=== PATIENT | female | born 1950 | race Caucasian/White ===

== ENCOUNTER 2018-07-07 00:18 | Emergency (ER) | payer MEDICARE, MEDICAID ==
[~2018-07-07] VITALS: Ht 147.3 cm; Wt 52.3 kg
[~2018-07-07 00:18] MED LIST: ACET-458 PO; CLON0.5T11 PO; FLUO20CA8 PO; MEDR2.5T PO; OMEP-110 PO; OXYC-302 PO; OXYC-306 PO; [UNRECOGNIZED DRUG - CODE] PO
[2018-07-07] MEDS ORDERED: HYDROcodone/APAP 5/325 TABLET PO STA (00:42)
[2018-07-07] MEDS ORDERED: BUPIVACAINE 0.25% INFIL ONE (01:00)
[2018-07-07] MEDS ORDERED: LIDOCAINE 2%, 20ML SQ ONE (01:00)
[2018-07-07 01:09] LABS: BASOPHILS # (AUTO) 0.04 x10^3/uL (0-0.1); BASOPHILS % (AUTO) 1 % (0-1); EOSINOPHILS # (AUTO) 0.09 x10^3/uL (0-0.4); EOSINOPHILS % (AUTO) 1 % (1-7); LYMPHOCYTES # (AUTO) 1.55 x10^3/uL (1-3.4); LYMPHOCYTES % (AUTO) 16 % (22-44); MD NO; MEAN CORPUSCULAR HEMOGLOBIN 29.4 pg (27.0-34.8); MEAN CORPUSCULAR HGB CONC 33.2 g/dL (32.4-35.8); MEAN CORPUSCULAR VOLUME 88.6 fL (80-100); MEAN PLATELET VOLUME 8.2 fL (7.4-10.4); MONOCYTES # (AUTO) 0.54 x10^3/uL (0.2-0.8); MONOCYTES % (AUTO) 6 % (2-9); NEUTROPHILS # (AUTO) 7.21 x10^3/uL (1.8-6.8); NEUTROPHILS % (AUTO) 76 % (42-75); PLATELET COUNT 277 x10^3/uL (130-400); RED BLOOD COUNT 4.88 x10^6/uL (3.82-5.3); RED CELL DISTRIBUTION WIDTH 14.2 % (9.6-15.2)
[2018-07-07 01:15] LABS: ALANINE AMINOTRANSFERASE 40 U/L (12-78); ALBUMIN 3.7 g/dL (3.4-5.0); ANION GAP 9 mmol/L (5-15); CALCIUM 9.1 mg/dL (8.5-10.1); CHLORIDE 106 mmol/L (98-107); CREATININE 0.99 mg/dL (0.55-1.02)
[2018-07-07 01:17] LABS: ALKALINE PHOSPHATASE 109 U/L (45-117); BILIRUBIN,TOTAL 0.4 mg/dL (0.2-1.0); TOTAL PROTEIN 8.1 g/dL (6.4-8.2)
[2018-07-07] MEDS ORDERED: LIDOCAINE-MPF 1%, 5ML ONE (02:15)
[2018-07-07] MEDS ORDERED: HYDROcodone/APAP 5/325 TABLET ONE ×2 (02:39→03:18)
[2018-07-07 03:28] VITALS: BP 135/88
[2018-07-07] MEDS ORDERED: HYDROcodone/APAP 5/325 TABLET PO ONE (03:30)
== END 2018-07-07 03:39 | disposition home or self-care (01) ==
LOC: ED 02:56
DX: L03.011 Cellulitis of right finger (principal); F17.200 Nicotine dependence, unspecified, uncomplicated
CPT/HCPCS: 10061; 36415; 80053; 85025; 99284; J3490; 10060

== ENCOUNTER 2019-10-11 13:23 | Emergency (ER) | payer MEDICAID, MEDICARE ==
[~2019-10-11] VITALS: Ht 149.9 cm; Wt 50.0 kg
[~2019-10-11 13:23] MED LIST changes: +CLON-364 PO; -CLON0.5T11 PO; +FLUO20CA23 PO; -FLUO20CA8 PO
--- NOTE | 2019-10-11 15:11 | NUR ---
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 HER LAST USE WAS THREE DAYS AGO. PT REPORTS N/V. VS STABLE. CALL LIGHT IN PLACE. NO ACUTE DISTRESS NOTED. REPORT GIVEN TO HUNTER ERNEE.
[2019-10-11] MEDS ORDERED: SODIUM CHLORIDE FLUSH 10ML SYR IVF ONE (15:30)
[2019-10-11] MEDS ORDERED: ONDANSETRON 2MG/ML, 2ML IVPush ONE (15:30)
[2019-10-11] MEDS ORDERED: SODIUM CHLORIDE 0.9% 1,000ML IVBOLUS ONE (15:30)
[2019-10-11] MEDS ORDERED: ONDANSETRON 2MG/ML, 2ML ONE (15:45)
[2019-10-11 15:48] LABS: BASOPHILS # (AUTO) 0.03 x10^3/uL (0-0.1); BASOPHILS % (AUTO) 0 % (0-1); EOSINOPHILS # (AUTO) 0.08 x10^3/uL (0-0.4); EOSINOPHILS % (AUTO) 1 % (1-7); LYMPHOCYTES # (AUTO) 1.24 x10^3/uL (1-3.4); LYMPHOCYTES % (AUTO) 15 % (22-44); MD NO; MEAN CORPUSCULAR HEMOGLOBIN 29.9 pg (27.0-34.8); MEAN CORPUSCULAR HGB CONC 33.2 g/dL (32.4-35.8); MEAN CORPUSCULAR VOLUME 90.1 fL (80-100); MEAN PLATELET VOLUME 7.9 fL (7.4-10.4); MONOCYTES # (AUTO) 0.39 x10^3/uL (0.2-0.8); MONOCYTES % (AUTO) 5 % (2-9); NEUTROPHILS # (AUTO) 6.63 x10^3/uL (1.8-6.8); NEUTROPHILS % (AUTO) 79 % (42-75); PLATELET COUNT 249 x10^3/uL (130-400); RED BLOOD COUNT 5.43 x10^6/uL (3.82-5.3); RED CELL DISTRIBUTION WIDTH 14.3 % (9.6-15.2)
[2019-10-11 15:54] LABS: ALANINE AMINOTRANSFERASE 44 U/L (12-78); ALBUMIN 3.7 g/dL (3.4-5.0); ANION GAP 6 mmol/L (5-15); CALCIUM 9.4 mg/dL (8.5-10.1); CHLORIDE 105 mmol/L (98-107)
[2019-10-11 15:59] LABS: ALKALINE PHOSPHATASE 103 U/L (45-117); BILIRUBIN,TOTAL 0.7 mg/dL (0.2-1.0); CREATININE 0.94 mg/dL (0.55-1.02); TOTAL PROTEIN 7.8 g/dL (6.4-8.2); TROPONIN I < 0.015 ng/mL (0.000-0.045)
[2019-10-11 18:35] VITALS: BP 124/74
== END 2019-10-11 18:38 | disposition home or self-care (01) ==
LOC: ED 18:35
DX: F15.10 Other stimulant abuse, uncomplicated (principal); R25.1 Tremor, unspecified
CPT/HCPCS: 36415; 71045; 80053; 83880; 84484; 85025; 93005; 96374; 99285; J2405; J7030; 96361